=== PATIENT | male | born 1955 | race Caucasian/White ===

== ENCOUNTER 2021-09-19 18:44 | Emergency (ER) | payer MEDICARE, OTHER ==
[~2021-09-19] VITALS: Ht 185.4 cm; Wt 83.9 kg
[2021-09-19 20:08] LABS: HEMOGLOBIN 10.7 gm/dl (14.0-17.5); RED BLOOD COUNT 3.62 M/UL (4.20-5.50); WHITE BLOOD COUNT 10.9 K/UL (4.5-11.0)
[2021-09-19 20:33] LABS: BUN/CREATININE RATIO 16 (0-10)
[2021-09-19] MEDS ORDERED: DOXYCYCLINE HY100 MG PO (23:30)
[2021-09-19] MEDS ORDERED: BENADRYL 25MG C25 MG PO (23:30)
== END 2021-09-20 00:07 | disposition left against medical advice (07) ==
LOC: ER1 18:44
PROVIDERS: Student in an Organized Health Care Education/Training Program
DX: L03.114 Cellulitis of left upper limb (principal); L03.113 Cellulitis of right upper limb; E11.22 Type 2 diabetes mellitus with diabetic chronic kidney disease; N18.9 Chronic kidney disease, unspecified; R60.0 Localized edema; I51.9 Heart disease, unspecified; Z95.1 Presence of aortocoronary bypass graft
CPT/HCPCS: 71045; 80053; 82550; 82553; 83605; 83874; 83880; 84484; 85025; 85610; 85730; 93005; 96365; 96366; 96375; 99284; J1200; J1940; J3370; J7070

== ENCOUNTER 2021-10-08 16:39 | Inpatient (IN) | payer MEDICARE, OTHER ==
[~2021-10-08] VITALS: Ht 185.4 cm; Wt 95.7 kg
[~2021-10-08 16:39] MED LIST: BENADRYL 25MG C25 MG PO; DOXYCYCLINE HY100 MG PO
[2021-10-08 17:51] LABS: HEMOGLOBIN 10.6 gm/dl (14.0-17.5); RED BLOOD COUNT 3.56 M/UL (4.20-5.50)
[2021-10-09 05:22] LABS: HEMOGLOBIN 9.6 gm/dl (14.0-17.5); RED BLOOD COUNT 3.38 M/UL (4.20-5.50)
[2021-10-09 05:28] LABS: WHITE BLOOD COUNT 8.6 K/UL (4.5-11.0)
[2021-10-09] MEDS ORDERED: AMLODIPINE BESYL5 MG PO (11:55)
[2021-10-09] MEDS ORDERED: ASPIRIN EC81 MG PO (11:56)
[2021-10-09] MEDS ORDERED: ATORVASTATIN CA40 MG PO (11:56)
[2021-10-09] MEDS ORDERED: ELIQUIS5 MG PO (11:56)
[2021-10-09] MEDS ORDERED: FUROSEMIDE40 MG PO (11:57)
[2021-10-09] MEDS ORDERED: FARXIGA5 MG PO (11:57)
[2021-10-09] MEDS ORDERED: TRADJENTA5 MG PO (11:58)
[2021-10-09] MEDS ORDERED: GLIPIZIDE XL10 MG PO (11:58)
[2021-10-09] MEDS ORDERED: GABAPENTIN600 MG PO (11:59)
[2021-10-09] MEDS ORDERED: SERTRALINE HCL50 MG PO (11:59)
[2021-10-09] MEDS ORDERED: METFORMIN HCL500 MG PO (11:59)
[2021-10-10 06:33] LABS: HEMOGLOBIN 9.5 gm/dl (14.0-17.5); RED BLOOD COUNT 3.22 M/UL (4.20-5.50)
[2021-10-10 06:35] LABS: WHITE BLOOD COUNT 13.4 K/UL (4.5-11.0)
[2021-10-10] MEDS ORDERED: PREDNISONE20 MG PO (11:17)
[2021-10-10] MEDS ORDERED: LASIX40 MG PO (11:17)
== END 2021-10-10 14:34 | disposition home or self-care (01) | DRG 596 ==
LOC: ER1 16:39 → M/S 20:58 → CDU 20:58 → M/S 10-09 05:15
PROVIDERS: Internal Medicine; Physician Assistant; ADMIT Internal Medicine Infectious Disease
PROC: 0HBJXZX Excision of Left Upper Leg Skin, External Approach, Diagnostic (ICD-10-PCS; principal; 2021-10-10)
DX: L12.0 Bullous pemphigoid (principal); N04.9 Nephrotic syndrome with unspecified morphologic changes; I13.0 Hypertensive heart and chronic kidney disease with heart failure and stage 1 through stage 4 chronic kidney disease, or unspecified chronic kidney disease; N17.9 Acute kidney failure, unspecified; R80.9 Proteinuria, unspecified; I25.10 Atherosclerotic heart disease of native coronary artery without angina pectoris; F17.210 Nicotine dependence, cigarettes, uncomplicated; Z20.822 Contact with and (suspected) exposure to COVID-19; N18.32 Chronic kidney disease, stage 3b; E11.51 Type 2 diabetes mellitus with diabetic peripheral angiopathy without gangrene; I73.9 Peripheral vascular disease, unspecified; E11.22 Type 2 diabetes mellitus with diabetic chronic kidney disease; J44.9 Chronic obstructive pulmonary disease, unspecified; Z79.01 Long term (current) use of anticoagulants; Z95.5 Presence of coronary angioplasty implant and graft; Z79.52 Long term (current) use of systemic steroids; Z79.4 Long term (current) use of insulin; Z90.49 Acquired absence of other specified parts of digestive tract
CPT/HCPCS: ECHO; 36415; 71045; 80048; 80053; 82728; 82962; 83540; 83550; 83880; 85025; 86140; 93005; 93306; 96374; 99285; J1756; J1940; U0002

== ENCOUNTER → 2021-10-26 | Outpatient (CLI) | payer OTHER, MEDICARE ==
[~2021-10-26] MED LIST changes: +AMLODIPINE BESYL5 MG PO; +ASPIRIN EC81 MG PO; +ATORVASTATIN CA40 MG PO; +ELIQUIS5 MG PO; +FARXIGA5 MG PO; +FUROSEMIDE40 MG PO; +GABAPENTIN600 MG PO; +GLIPIZIDE XL10 MG PO; +LASIX40 MG PO; +METFORMIN HCL500 MG PO; +PREDNISONE20 MG PO; +SERTRALINE HCL50 MG PO; +TRADJENTA5 MG PO
[2021-10-26 14:59] LABS: HEMOGLOBIN 10.4 gm/dl (14.0-17.5); RED BLOOD COUNT 3.5 M/UL (4.20-5.50); WHITE BLOOD COUNT 10.9 K/UL (4.5-11.0)
== END ==
LOC: LAB 14:33
PROVIDERS: Internal Medicine Nephrology
DX: N17.9 Acute kidney failure, unspecified (principal); D50.0 Iron deficiency anemia secondary to blood loss (chronic)
CPT/HCPCS: 36415; 80053; 82728; 83540; 83550; 85025; 85027